=== PATIENT | male | born 1960 | race Asian ===

== ENCOUNTER 2019-07-04 10:36 | Emergency (ER) | payer OTHER ==
[~2019-07-04] VITALS: Ht 162.6 cm; Wt 65.9 kg
[2019-07-04] MEDS ORDERED: OMEP20 PO (10:55)
[2019-07-04 11:14] VITALS: BP 128/95
== END 2019-07-04 11:16 | disposition home or self-care (01) ==
LOC: EMS 10:37
DX: R20.0 Anesthesia of skin (principal); K21.9 Gastro-esophageal reflux disease without esophagitis; F17.210 Nicotine dependence, cigarettes, uncomplicated